=== PATIENT | male | born 1985 | race African-American/Black ===

== ENCOUNTER 2017-11-21 15:35 | Emergency (ER) | payer MEDICAID ==
[~2017-11-21] VITALS: Ht 182.9 cm; Wt 83.0 kg
[2017-11-21] MEDS ORDERED: ONDANSETRON HCL 4MG/2ML INJ IV STA (16:05)
[2017-11-21] MEDS ORDERED: FAMOTIDINE 20MG/2ML VIAL IV STA (16:05)
[2017-11-21] MEDS ORDERED: SODIUM CHLORIDE 0.9% 1,000 ML IV ONE (16:05)
[2017-11-21] MEDS ORDERED: MAGNESIUM/ALUMINUM HYDROXIDE/SIMETHICONE 30ML UDC PO STA (16:05)
[2017-11-21] MEDS ORDERED: MORPHINE SULFATE 4 MG/ML CPJ (NOT FOR IM USE) IV STA (16:05)
[2017-11-21 17:19] LABS: BASOPHILS % 0.2 % (0.0-2.0); EOSINOPHILS % 0.1 % (0.0-5.0); HEMATOCRIT. 45.3 % (42.0-52.0); HEMOGLOBIN. 14.8 g/dL (14.0-18.0); LYMPHOCYTES % 13.5 % (20.0-50.0); MEAN CORPUSCULAR HEMOGLOBIN 31.2 pg (28.0-32.0); MEAN CORPUSCULAR VOLUME 95.4 fL (80.0-94.0); MEAN PLATELET VOLUME 9.9 fl (7.4-10.4); MONOCYTES % 3.4 % (2.0-8.0); NEUTROPHILS % 82.8 % (40.0-76.0); PLATELET 158 x1000/uL (130-400); RED BLOOD CELL COUNT 4.75 mill/uL (4.7-6.1); RED CELL DISTRIBUTION WIDTH 13.9 % (11.6-14.6)
[2017-11-21 17:24] LABS: PROTHROMBIN TIME 10.3 sec (9.1-11.1)
[2017-11-21 17:25] LABS: CHLORIDE 107 mEq/L (98-107)
[2017-11-21 17:33] LABS: ETHANOL BLOOD < 10 mg/dL
[2017-11-21 21:07] VITALS: BP 124/75
== END 2017-11-21 21:08 | disposition home or self-care (01) ==
LOC: ER 15:58
DX: K29.70 Gastritis, unspecified, without bleeding (principal)
CPT/HCPCS: 36415; 71045; 80053; 83690; 84484; 85025; 85610; 96361; 96374; 96375; 99285; G0482; J2270; J2405; J3490; J7030

== ENCOUNTER 2020-08-25 09:39 | Emergency (ER) | payer MEDICAID ==
[~2020-08-25] VITALS: Ht 185.4 cm; Wt 83.0 kg
[2020-08-25] MEDS ORDERED: ASPIRIN 81MG TABLET PO ONE (10:00)
[2020-08-25] MEDS ORDERED: SODIUM CHLORIDE 0.9% 1,000 ML IV ONE (10:00)
[2020-08-25 10:12] LABS: BASOPHILS % 0.5 % (0.0-2.0); EOSINOPHILS % 1.3 % (0.0-5.0); HEMATOCRIT. 42.1 % (42.0-52.0); HEMOGLOBIN. 14.6 g/dL (14.0-18.0); LYMPHOCYTES % 39.8 % (20.0-50.0); MEAN CORPUSCULAR HEMOGLOBIN 31.8 pg (28.0-32.0); MEAN CORPUSCULAR VOLUME 91.6 fL (80.0-94.0); MEAN PLATELET VOLUME 8.9 fl (7.4-10.4); MONOCYTES % 5.5 % (2.0-8.0); NEUTROPHILS % 52.9 % (40.0-76.0); PLATELET 185 x1000/uL (130-400); RED CELL DISTRIBUTION WIDTH 13.8 % (11.6-14.6)
[2020-08-25 10:24] LABS: CHLORIDE 112 mEq/L (98-107)
[2020-08-25 12:07] VITALS: BP 112/76
== END 2020-08-25 12:08 | disposition left against medical advice (07) ==
LOC: ER 09:39
DX: R07.89 Other chest pain (principal); F12.90 Cannabis use, unspecified, uncomplicated
CPT/HCPCS: 36415; 71045; 80053; 83690; 83880; 84484; 85025; 93005; 96360; 99285; J7030; Z7610

== ENCOUNTER 2022-01-29 12:51 | Emergency (ER) | payer MEDICAID ==
[~2022-01-29] VITALS: Ht 185.4 cm; Wt 88.0 kg
[2022-01-29] MEDS ORDERED: KETOROLAC 60MG/2ML VIAL IM ONE (16:00)
[2022-01-29] MEDS ORDERED: BACI3.5O5 OP (16:57)
[2022-01-29] MEDS ORDERED: BACITRACIN ZINC OINT UDPKT TOP ONE (17:00)
[2022-01-29 17:30] VITALS: BP 127/75
== END 2022-01-29 17:32 | disposition home or self-care (01) ==
LOC: ER 12:51
DX: S60.411A Abrasion of left index finger, initial encounter (principal); F12.10 Cannabis abuse, uncomplicated; W01.0XXA Fall on same level from slipping, tripping and stumbling without subsequent striking against object, initial encounter; Y93.89 Activity, other specified; Y92.89 Other specified places as the place of occurrence of the external cause; Y99.8 Other external cause status
CPT/HCPCS: 73130; 96372; 99283; J1885

== ENCOUNTER 2022-12-06 13:15 | Emergency (ER) | payer MEDICAID ==
[~2022-12-06] VITALS: Ht 182.9 cm; Wt 73.0 kg
[~2022-12-06 13:15] MED LIST: BACI3.5O5 OP
[2022-12-06 13:37] VITALS: O2SAT 100
[2022-12-06] MEDS ORDERED: OFLO5DRO4 RIGHT EAR (13:42)
[2022-12-06 14:14] VITALS: BP 137/69; PULSE 71; RESP 16; TEMP 98.4
== END 2022-12-06 14:14 | disposition home or self-care (01) ==
LOC: ER 13:15
DX: H60.91 Unspecified otitis externa, right ear (principal)
CPT/HCPCS: 99283

== ENCOUNTER 2024-11-03 12:07 | Emergency (ER) | payer MEDICAID ==
[~2024-11-03] VITALS: Ht 177.8 cm; Wt 82.0 kg
[~2024-11-03 12:07] MED LIST changes: +OFLO5DRO4 RIGHT EAR
[2024-11-03 12:10] VITALS: O2SAT 99
[2024-11-03] MEDS: SODIUM CHLORIDE 0.9% 1,000 ML IV ONE (12:45)
[2024-11-03] MEDS: MORPHINE SULFATE 4 MG/ML INJ (FOR IV/IM USE) IV ONE (12:45)
[2024-11-03] MEDS: FAMOTIDINE 20MG/2ML VIAL IV ONE (12:45)
[2024-11-03] MEDS: ONDANSETRON HCL 4MG/2ML INJ IV ONE (12:45)
[2024-11-03 12:59] LABS: BASOPHILS % 0.2 % (0.0-2.0); EOSINOPHILS % 0.1 % (0.0-5.0); HEMATOCRIT. 41.3 % (42.0-52.0); HEMOGLOBIN. 13.5 g/dL (14.0-18.0); LYMPHOCYTES % 15.8 % (20.0-50.0); MEAN PLATELET VOLUME 9.0 fl (7.4-10.4); MONOCYTES % 2.5 % (2.0-8.0); NEUTROPHILS % 81.4 % (40.0-76.0); PLATELET 184 x1000/uL (130-400); RED BLOOD CELL COUNT 4.42 mill/uL (4.7-6.1); RED CELL DISTRIBUTION WIDTH 13.8 % (11.6-14.6)
[2024-11-03 13:12] LABS: CREATININE 1.1 mg/dL (0.6-1.3)
[2024-11-03 13:13] LABS: ETHANOL BLOOD < 10 mg/dL (<10); UREA NITROGEN BLOOD 11 mg/dL (9-23)
[2024-11-03 13:14] LABS: ASPARTATE AMINOTRANSFERASE 21 IU/L (<34)
[2024-11-03 13:15] LABS: BILIRUBIN DIRECT 0.1 mg/dL (<=3.0); BILIRUBIN TOTAL 0.5 mg/dL (0.1-1.0); PROTEIN TOTAL 7.4 g/dL (6.0-8.3); TROPONIN I HIGH SENSITIVITY < 4 ng/L (3.0-53)
[2024-11-03 15:28] LABS: TROPONIN I HIGH SENSITIVITY < 4 ng/L (3.0-53)
[2024-11-03 17:50] LABS: *AMPHETAMINES SCREEN URINE NEGATIVE (NEGATIVE); *BARBITURATES SCREEN URINE NEGATIVE (NEGATIVE); *BENZODIAZEPINES SCREEN URINE NEGATIVE (NEGATIVE); *COCAINE SCREEN URINE NEGATIVE (NEGATIVE); METHADONE URINE SCREEN NEGATIVE (NEGATIVE)
[2024-11-03 17:51] LABS: CANNABINOID URINE SCREEN PRESUMPTIVE POSITIVE (NEGATIVE); ECSTASY MDMA SCREEN URINE NEGATIVE (NEGATIVE); OPIATES URINE SCREEN PRESUMPTIVE POSITIVE (NEGATIVE); PHENCYCLIDINE URINE SCREEN NEGATIVE (NEGATIVE)
[2024-11-03] MEDS ORDERED: ONDA-239 PO (18:13)
[2024-11-03] MEDS ORDERED: CIPR-263 MT (18:13)
[2024-11-03 18:23] VITALS: BP 112/70; PULSE 85; RESP 16; TEMP 36.7; O2SAT 100
== END 2024-11-03 18:33 | disposition home or self-care (01) ==
LOC: ER 12:07
DX: K52.9 Noninfective gastroenteritis and colitis, unspecified (principal); F12.90 Cannabis use, unspecified, uncomplicated; Z79.899 Other long term (current) drug therapy; Z87.19 Personal history of other diseases of the digestive system
CPT/HCPCS: 99285; 74176; 96374; 76705; 96375; 96361; 80076; 80305; 80048; 83690; 85025; 84484; 36415; 93005; G0480; J1308; J2405; J2270; J7030; 80320

== ENCOUNTER 2024-12-23 00:28 | Emergency (ER) | payer MEDICAID ==
[~2024-12-23] VITALS: Ht 185.4 cm; Wt 91.0 kg
[2024-12-23 00:35] VITALS: TEMP 36.6; O2SAT 98
[2024-12-23 01:24] LABS: BASOPHILS % 0.5 % (0.0-2.0); EOSINOPHILS % 1.0 % (0.0-5.0); HEMATOCRIT. 38.5 % (42.0-52.0); HEMOGLOBIN. 12.8 g/dL (14.0-18.0); LYMPHOCYTES % 29.7 % (20.0-50.0); MEAN PLATELET VOLUME 9.0 fl (7.4-10.4); MONOCYTES % 6.3 % (2.0-8.0); NEUTROPHILS % 62.5 % (40.0-76.0); PLATELET 186 x1000/uL (130-400); RED BLOOD CELL COUNT 4.13 mill/uL (4.7-6.1); RED CELL DISTRIBUTION WIDTH 13.5 % (11.6-14.6)
[2024-12-23] MEDS: KETOROLAC 15MG/ML VIAL IM ONE (01:38)
[2024-12-23] MEDS: ONDANSETRON 4MG ODT PO ONE (01:39)
[2024-12-23 01:41] LABS: CREATININE 1.2 mg/dL (0.6-1.3)
[2024-12-23 01:42] LABS: UREA NITROGEN BLOOD 12 mg/dL (9-23)
[2024-12-23 01:43] LABS: ASPARTATE AMINOTRANSFERASE 22 IU/L (<34)
[2024-12-23 01:44] LABS: BILIRUBIN DIRECT 0.2 mg/dL (<=3.0); BILIRUBIN TOTAL 1.1 mg/dL (0.1-1.0); PROTEIN TOTAL 6.7 g/dL (6.0-8.3)
[2024-12-23 02:04] LABS: TROPONIN I HIGH SENSITIVITY 5 ng/L (3.0-53)
[2024-12-23 03:03] LABS: CLARITY URINE CLEAR (CLEAR); COLOR URINE YELLOW (YELLOW); GLUCOSE URINE NEGATIVE (NEGATIVE); KETONES URINE NEGATIVE (NEGATIVE); OCCULT BLOOD URINE NEGATIVE (NEGATIVE); PH URINE 7.0 (4.5-8.0); PROTEIN URINE NEGATIVE (NEGATIVE); SPECIFIC GRAVITY URINE 1.018 (1.005-1.030)
[2024-12-23 03:04] LABS: LEUKOCYTE ESTERASE URINE NEGATIVE (NEGATIVE); NITRITE URINE NEGATIVE (NEGATIVE); UROBILINOGEN URINE 2.0 E.U./dL (0.2-1.0)
[2024-12-23 03:05] LABS: BACTERIA URINE TRACE; RBC URINE NONE SEEN /hpf (0-2); SQUAMOUS EPITHELIAL CELL URINE RARE /lpf (RARE/1+); WBC URINE 0-2 /hpf (0-2)
[2024-12-23] MEDS ORDERED: MAG-55 MT (04:23)
[2024-12-23 05:01] VITALS: BP 110/77; PULSE 65; RESP 18; O2SAT 99
== END 2024-12-23 05:02 | disposition home or self-care (01) ==
LOC: ER 00:28
DX: R10.9 Unspecified abdominal pain (principal); R07.9 Chest pain, unspecified; D64.9 Anemia, unspecified; Z98.890 Other specified postprocedural states; Z79.899 Other long term (current) drug therapy
CPT/HCPCS: 99285; 74176; 71045; 80076; 80048; 81003; 83690; 85025; 84484; 36415; 93005; 96372; J1885; Q0162